=== PATIENT | female | born 1995 | race African-American/Black ===

== ENCOUNTER 2017-12-12 17:14 | Emergency (ER) | payer OTHER ==
[2017-12-12 17:22] VITALS: BP 136/99; PULSE 80; TEMP 98.3; BMI 27.4
--- NOTE | 2017-12-12 17:25 | PDOC ---
Rapid Medical Evaluation Chief Complaint: Psychiatric Time Seen by Provider: 12/12/17 17:22 Medical Evaluation: Allergies Allergy/AdvReac Type Severity Reaction Status Date / Time No Known Allergies Allergy Verified 12/12/17 17:16 Vital Signs Temp Pulse Resp BP Pulse Ox 98.3 F 80 16 136/99 100 12/12/17 17:17 12/12/17 17:17 12/12/17 17:17 12/12/17 17:17 12/12/17 17:17 12/12/17 17:23 I have performed a brief in-person evaluation of this patient. The patient presents with a chief complaint of syncope and vomiting today. Patient reports " I had a mental breakdown" Pertinent physical exam findings: appears weak in wheelchair, unable to sit upright in wheelchair unlabored breathing mild tenderness in right upper abdomen I have ordered the following: urine hcg The patient will proceed to the ED for further evaluation.
--- NOTE | 2017-12-12 18:20 | PDOC ---
History of Present Illness <Jos Keys - Last Filed: 12/12/17 18:26> - General History Source: Patient Exam Limitations: No Limitations - History of Present Illness Initial Comments: 12/12/17 18:32 The patient is a 22 year old female, with no significant past medical history, who presents to the emergency department s/p panic attack earlier today. The patient reports she was in the car with her boyfriend when they began to argue, she became anxious and exited the car. Patient reports nausea, vomiting, shortness of breath, lightheadedness, and subsequently collapsing to the ground. She denies any head trauma, headache, LOC, or changes in vision. She denies any history of abuse in her relationship. She denies any suicidal or homicidal ideations. She denies any chest pain, diaphoresis, palpitations, or lower extremity edema. She denies any abdominal pain, diarrhea, constipation, or changes in urination. She denies any recent travel or sick contacts. Allergies: NKDA Past Surgical History: None reported Social History: Non smoker. No ETOH or recreational drug use. <Bobbi Fernandez - Last Filed: 12/12/17 19:08> - General Chief Complaint: Psychiatric Stated Complaint: ANXIETY ATTACK Time Seen by Provider: 12/12/17 17:22 Past History - Past Medical History CVA: No COPD: No DVT: No - Immunization History Immunization Up to Date: Yes - Suicide/Smoking/Psychosocial Hx Smoking History: Never smoked Have you smoked in the past 12 months: No Information on smoking cessation initiated: No Hx Alcohol Use: No Drug/Substance Use Hx: No Substance Use Type: None <Jos Keys - Last Filed: 12/12/17 18:26> <Bobbi Fernandez - Last Filed: 12/12/17 19:08> - Past Medical History Allergies/Adverse Reactions: Allergies Allergy/AdvReac Type Severity Reaction Status Date / Time No Known Allergies Allergy Verified 12/12/17 17:16 Home Medications: Ambulatory Orders NK [No Known Home Medication] 12/12/17 Review of Systems - Review of Systems Able to Perform ROS?: Yes Comments:: 12/12/17 18:32 ROS: A complete review of 10 out of 10 review of systems is taken and is negative apart from what is previously mentioned below and in the HPI. <Bobbi Fernandez - Last Filed: 12/12/17 19:08> *Physical Exam - Vital Signs Last Vital Signs Temp Pulse Resp BP Pulse Ox 98.3 F 80 16 136/99 100 12/12/17 17:17 12/12/17 17:17 12/12/17 17:17 12/12/17 17:17 12/12/17 17:17 <Jos Keys - Last Filed: 12/12/17 18:26> - Vital Signs Last Vital Signs Temp Pulse Resp BP Pulse Ox 98.3 F 80 16 136/99 100 12/12/17 17:17 12/12/17 17:17 12/12/17 17:17 12/12/17 17:17 12/12/17 17:17 - Physical Exam Comments: 12/12/17 18:32 Vitals: Triage vital signs reviewed General Appearance: No acute distress, well nourished, well developed Head: Atraumatic Cardiac: Regular rate and rhythm, no murmurs, no rubs, no gallops Lungs: Clear to auscultation bilateral, good air movement bilaterally Abdomen: Soft, nondistended, normal bowel sounds, nontender to palpation Skin: Warm and dry, no rashes or lesions, no rash, no petechiae Psych: Normal mood, normal affect <Bobbi Fernandez - Last Filed: 12/12/17 19:08> Heart Score/ECG Review - ECG Intrepretation Comment:: 12/12/17 19:07 Vent Rate: 80 bpm IMPRESSION: Normal sinus rhythm. <Bobbi Fernandez - Last Filed: 12/12/17 19:08> ED Treatment Course - ADDITIONAL ORDERS Additional order review: Laboratory Results 12/12/17 17:24 Urine HCG, Qual Negative <Jos Keys - Last Filed: 12/12/17 18:26> - ADDITIONAL ORDERS Additional order review: Laboratory Results 12/12/17 17:24 Urine HCG, Qual Negative <Bobbi Fernandez - Last Filed: 12/12/17 19:08> Medical Decision Making - Medical Decision Making 12/12/17 18:26 Well-appearing no apparent distress history and examination consistent with panic attack We'll check EKG and reassess patient currently asymptomatic feels much better EKG is documented Patient will follow-up with either our clinic with her primary doctor this week she'll return to ED for any severe worsening symptoms or for any concerns Findings, the need for follow-up, strict return instructions discussed with patient. <Jos Keys - Last Filed: 12/12/17 18:26> *DC/Admit/Observation/Transfer - Discharge Dispostion Admit: No <Jos Keys - Last Filed: 12/12/17 18:26> - Attestations Scribe Attestion: 12/12/17 18:34 Documentation prepared by Bobbi Fernandez, acting as medical claims processor for Jos Keys MD. <Bobbi Fernandez - Last Filed: 12/12/17 19:08> Diagnosis at time of Disposition: Anxiety - Discharge Dispostion Disposition: HOME - Referrals Referrals: Blank Ugalde MD [Primary Care Provider] - - Patient Instructions Printed Discharge Instructions: Anxiety and Panic Attacks (Alternative Therapy) Additional Instructions: Follow-up with your doctor this week. Return to the emergency department for any severe worsening symptoms or for any concerns. - Post Discharge Activity
--- NOTE | 2017-12-13 10:50 | EKG ---
Test Reason : Blood Pressure : / mmHG Vent. Rate : 080 BPM Atrial Rate : 080 BPM P-R Int : 118 ms QRS Dur : 090 ms QT Int : 380 ms P-R-T Axes : 054 055 040 degrees QTc Int : 438 ms NORMAL SINUS RHYTHM NORMAL ECG NO PREVIOUS ECGS AVAILABLE Confirmed by MD Khadar, Franki ([id number]) on 12/13/2017 10:50:26 AM Referred By: Confirmed By:Franki Rubalcava MD
== END 2017-12-12 19:56 | disposition home or self-care (01) ==
LOC: JER 17:14
DX: F41.0 Panic disorder [episodic paroxysmal anxiety] (principal)
CPT/HCPCS: 84703; 93005; 93010; 99283-25